=== PATIENT | male | born 1955 | race Hispanic/Latino ===

== ENCOUNTER → 2020-11-21 | Day surgery (SDC) | payer BC ==
[~2020-11-21] MED LIST: ACETAMINOPHEN/CODEINE 300MG - 30MG TAB ONE; ASPIRIN81 MG PO; FENTANYL CITRATE/PF 100MCG/2 ML INJ ONE; HYDROXYZIN10 MG/5 ML PO; HYDROXYZINE HCL25 MG PO; ONDANSETRON HCL INJ 2MG/ML 2ML 2 MG/ML VIAL ONE; SODIUM CHLORIDE 0.9% 50ML 50 ML ONE
[2020-11-21 15:40] VITALS: BP 140/88
== END | disposition home or self-care (01) ==
LOC: OR 11:27
PROVIDERS: ATTEND Specialist
DX: S83.232A Complex tear of medial meniscus, current injury, left knee, initial encounter (principal); R73.03 Prediabetes; G47.33 Obstructive sleep apnea (adult) (pediatric); M67.52 Plica syndrome, left knee; M22.42 Chondromalacia patellae, left knee; Z20.822 Contact with and (suspected) exposure to COVID-19; Z01.812 Encounter for preprocedural laboratory examination
CPT/HCPCS: 29875; 29881; J0690; J2405; J3010; U0002

== ENCOUNTER 2020-12-23 13:55 | Outpatient (RCR) | payer BC ==
[~2020-12-23 13:55] MED LIST changes: -ACETAMINOPHEN/CODEINE 300MG - 30MG TAB ONE; -FENTANYL CITRATE/PF 100MCG/2 ML INJ ONE; -ONDANSETRON HCL INJ 2MG/ML 2ML 2 MG/ML VIAL ONE; -SODIUM CHLORIDE 0.9% 50ML 50 ML ONE
== END 2020-12-25 ==
LOC: PT 13:55
PROVIDERS: ATTEND Physician Assistant
DX: M25.562 Pain in left knee (principal); M25.662 Stiffness of left knee, not elsewhere classified; R26.89 Other abnormalities of gait and mobility; M62.81 Muscle weakness (generalized)

== ENCOUNTER 2021-01-18 14:00 | Outpatient (RCR) | payer BC, MEDICARE | END 2021-01-24 | LOC: PT 14:00 | PROVIDERS: ATTEND Physician Assistant | DX: M25.562 Pain in left knee (principal); M25.662 Stiffness of left knee, not elsewhere classified; M62.81 Muscle weakness (generalized); R26.89 Other abnormalities of gait and mobility | CPT/HCPCS: 97139 ==

== ENCOUNTER → 2021-02-24 | Outpatient (RCR) | payer BC, MEDICARE | LOC: PT 02-15 13:05 | PROVIDERS: ATTEND Physician Assistant | DX: M25.562 Pain in left knee (principal); R26.89 Other abnormalities of gait and mobility; M62.81 Muscle weakness (generalized) ==

== ENCOUNTER 2021-02-28 13:59 | Outpatient (RCR) | payer BC, MEDICARE | END 2021-03-27 | LOC: PT 13:59 | PROVIDERS: ATTEND Physician Assistant | DX: M25.562 Pain in left knee (principal); M25.662 Stiffness of left knee, not elsewhere classified; R26.89 Other abnormalities of gait and mobility; M62.81 Muscle weakness (generalized) | CPT/HCPCS: 97139 ==